=== PATIENT | female | born 1965 | race Caucasian/White ===

== ENCOUNTER 2016-12-11 13:36 | Emergency (ER) | payer BC ==
[~2016-12-11] VITALS: Ht 167.6 cm; Wt 64.5 kg
[~2016-12-11 13:36] MED LIST: ACET-1311 PO; ALBU1AER9 INH; CMBIN INH; IBUP-1277 PO; NORE1TAB53 PO; TRAM-10 PO; Vitamin B 12 PO
[2016-12-11 13:43] VITALS: TEMP 37; Ht 167.6 cm; Wt 64.5 kg
[2016-12-11] MEDS ORDERED: TRAMADOL HCL 50 MG TAB PO STA (13:50)
[2016-12-11] MEDS ORDERED: IBUPROFEN 600 MG TAB PO STA (13:50)
[2016-12-11] MEDS ORDERED: KETOROLAC TROMETHAMINE 60 MG/2 ML VIAL IM STA (13:53)
[2016-12-11] MEDS ORDERED: ONDANSETRON 4MG OD TAB PO ONE (14:00)
[2016-12-11] MEDS ORDERED: ALBU18002 INH (14:02)
[2016-12-11] MEDS ORDERED: IPRA1AER2 INH (14:02)
[2016-12-11] MEDS ORDERED: MULT-506 PO (14:03)
--- NOTE | 2016-12-11 14:29 | DIAGNOSTIC IMAGING REPORT ---
R KNEE 3 VIEWS CLINICAL HISTORY: fall, pain trauma. Pain. COMPARISON: None. DISCUSSION: Nondisplaced cortical fracture anterior inferior margin of the patella. No significant joint effusion. No evidence of dislocation. All remaining osseous structures are unremarkable. There is no evidence for soft tissue swelling. IMPRESSION: Nondisplaced cortical fracture anterior inferior patella. The above report was generated using voice recognition software. It may contain grammatical, syntax or spelling errors. Electronically signed by: Jethro Kaiser M.D. 12/11/2016 2:28 PM Dictated Date/Time: 12/11/2016 2:27 PM
--- NOTE | 2016-12-11 14:35 | EMERGENCY ROOM VISIT NOTE ---
ED Visit Note First contact with patient: 13:47 CHIEF COMPLAINT: knee pain HISTORY OF PRESENT ILLNESS: This 51-year-old patient presents to the emergency department with after sustaining an injury to the right knee when she slipped on water in her kitchen falling to the ground. The patient denies any other injuries besides their knee. The patient complains of swelling without bruising. There is pain throughout the knee. They rate the pain as throbbing and 5/10. The patient states they are barely able to walk on it. Movement makes it worse and nothing makes it better. No numbness or tingling. No previous injuries to this knee. No ankle, foot or hip pain. No other concerns per patient. REVIEW OF SYSTEMS: A 6 system review of systems was completed with positives and pertinent negatives listed in the HPI. ALLERGIES: None MEDICATIONS: Ultram PMH: Bowel obstruction, neck pain SOCIAL HISTORY: No drug use PHYSICAL EXAM: Vital Signs: Reviewed Nurse's notes, vital signs mildly hypertensive. GENERAL: Pleasant female, no acute distress, but appears in pain , well-developed, well-nourished. MENTAL STATUS: Alert, oriented to person place and time, and cooperative. MUSCULOSKELETAL: The right knee is swollen. There is no ecchymosis. There is minimal joint effusion present. The patient is tender diffusely. There is joint line tenderness. The patella not subluxate. Range of motion is intact but painful. Strength of the quads and hamstrings is 5/5, Marcus's and Anterior Drawer tests are negative. There is pain with varus and valgus stressing. The foot and toes are warm and well- perfused. Dorsalis pedis pulse 2+. Sensation to pain and light touch is intact. Capillary refill less than 2 seconds. EMERGENCY DEPARTMENT COURSE: I examined the patient. X-rays of the right knee were reviewed by myself and read by radiology and reveal patella fracture. The patient was placed in a knee immobilizer under my direction and the position was satisfactory. The patient was instructed on the use of crutches. Patient was advised to follow-up with orthopedics in a few days for definitive care for her patella fracture or here in the ER sooner for severe pain, numbness, tingling, worsening signs or symptoms or as needed. The patient was discharged home in good condition. Patient states that they will call Dr. Alaniz's office for follow-up. DIAGNOSIS: #1 right patella fracture, closed, initial encounter #2 fall DISCHARGE INSTRUCTIONS: DO NOT drive, drink alcohol, operate machinery, or perform dangerous activities today. You were given medications in the ER that can affect your ability to safely function or operate a vehicle. Ultram 50mg: Take 1-2 pills every four hours for breakthrough pain. Avoid alcohol, operating machinery or dangerous equipment, working on ladders or roofs , DRIVING, or situations where being under the influence may be dangerous. It is recommended to use an [id number] stool softener such as Colace, 100mg twice daily while taking this medication to avoid constipation. Ibuprofen(Motrin, Advil) may be used for fever or pain. Use 600mg every six hours as needed. Take with food. Avoid using more than 2400mg in a 24 hour period. Do not use 2400mg per day for more than three consecutive days without physician direction. Prolonged inappropriate use can lead to stomach upset or ulcers. This medication can be taken if you need to drive, work, or perform activities which may be dangerous when taking narcotic pain medication. (AND/OR) Acetaminophen(Tylenol) may be used for fever or pain. Use 1000mg every six hours as needed. Avoid using more than 3000mg in a 24 hour period. This medication can be taken if you need to drive, work, or perform activities which may be dangerous when taking narcotic pain medication. Ice compresses for 20 minutes at a time four times daily for 2-3 days. Use the crutches as instructed. Rest and elevate your injury. Wear knee immobilizer when up and about. Do not have it so tight that you cannot feel your foot. Continue current medications. Return to the ER immediately for any numbness, tingling, severe pain, extreme swelling in the extremity or as needed. Call Orthopedics tomorrow to arrange follow up for your injury. Current/Historical Medications Scheduled Multivitamin (Multivitamin), 1 TAB PO DAILY Scheduled PRN Tramadol (Ultram), 50 MG PO Q4H PRN for Pain Allergies Coded Allergies: No Known Allergies (Unverified , 12/11/16) Vital Signs Date Time Temp Pulse Resp B/P (MAP) Pulse Ox O2 Delivery O2 Flow Rate FiO2 12/11/16 13:43 37.0 66 18 140/102 97 Room Air Medications Administered Medications (Trade) Dose Ordered Sig/Hao Route Start Time Stop Time Status Last Admin Dose Admin Tramadol HCl (Ultram Tab) 50 mg ONE STAT PO 12/11/16 13:50 12/11/16 13:52 DC 12/11/16 13:59 50 MG Ketorolac Tromethamine (Toradol Inj) 60 mg NOW STAT IM 12/11/16 13:53 12/11/16 13:54 DC 12/11/16 14:00 60 MG Ondansetron HCl (Zofran Odt) 4 mg ONE ONCE PO 12/11/16 14:00 12/11/16 14:01 DC 12/11/16 13:59 4 MG Departure Information Referrals Joseph Carmona III, M.D. (PCP) Patient Instructions My [facility]
[2016-12-11 14:42] VITALS: BP 143/70; PULSE 73; O2SAT 96
== END 2016-12-11 14:43 | disposition home or self-care (01) ==
LOC: C.EDB 13:37 → C.EDD 14:43
DX: S82.001A Unspecified fracture of right patella, initial encounter for closed fracture (principal); W01.0XXA Fall on same level from slipping, tripping and stumbling without subsequent striking against object, initial encounter; Y92.010 Kitchen of single-family (private) house as the place of occurrence of the external cause

== ENCOUNTER 2017-06-10 07:44 | Emergency (ER) | payer BC ==
[~2017-06-10] VITALS: Ht 167.6 cm; Wt 66.2 kg
[~2017-06-10 07:44] MED LIST changes: -ACET-1311 PO; -ALBU1AER9 INH; -CMBIN INH; -IBUP-1277 PO; +MULT-506 PO; -NORE1TAB53 PO; -Vitamin B 12 PO
[2017-06-10 07:49] VITALS: TEMP 36.8; Ht 167.6 cm; Wt 66.2 kg
--- NOTE | 2017-06-10 08:55 | DIAGNOSTIC IMAGING REPORT ---
L KNEE 3 VIEWS CLINICAL HISTORY: Left knee pain and swelling COMPARISON: None. DISCUSSION: No fractures or dislocations are visualized. There is a suprapatellar joint effusion. There are no erosive or destructive lesions. IMPRESSION: Suprapatellar joint effusion. No fractures identified. Electronically signed by: Paulino Morales M.D. 06/10/2017 8:54 AM Dictated Date/Time: 06/10/2017 8:53 AM
--- NOTE | 2017-06-10 09:33 | DIAGNOSTIC IMAGING REPORT ---
LEFT LOWER EXTREMITY VENOUS DOPPLER CLINICAL HISTORY: LEFT, CALF PAIN COMPARISON STUDY: No previous studies for comparison. TECHNIQUE: Sonography of the deep venous system of the left lower extremity was performed. Compression and augmentation were evaluated. FINDINGS: The common femoral, superficial femoral and popliteal veins were compressible. Augmentation was normal. Flow was shown within the deep calf vessels. Note is made of a complex 3.6 x 1.9 x 1.7 cm hypoechoic focus with the left popliteal fossa. This contains no color flow. IMPRESSION: 1. No evidence of deep venous thrombus within the left lower extremity. 2. 3.6 x 1.7 x 1.7 cm hypoechoic focus within the left popliteal fossa. Statistically, this reflects a complex popliteal cyst. However, a follow-up ultrasound in 3 months is recommended to exclude the less likely possibility of a mass. Electronically signed by: Eduardo Obando M.D. 06/10/2017 9:31 AM Dictated Date/Time: 06/10/2017 9:27 AM
--- NOTE | 2017-06-10 09:37 | EMERGENCY ROOM VISIT NOTE ---
ED Visit Note First contact with patient: 07:54 CHIEF COMPLAINT: Left knee and leg pain 2 weeks HISTORY OF PRESENT ILLNESS: Patient is a healthy 51-year-old female who presents emergency department for evaluation of left knee and calf pain. She states her symptoms started a couple of weeks ago, with a throbbing, shooting pain around the knee. At night, the pain is achy and radiates through the entire leg. She has tried ibuprofen, ice and wearing a knee brace on the knee. A couple of days ago, she began to notice shooting pain into the medial left calf. She did not notice any significant swelling or redness. The pain is worse when she sits for prolonged periods of time. She denies any numbness or tingling. No chest pain or shortness of breath. She does note that she was in a knee brace for a right patellar fracture in the fall, and travels frequently by car and plane. She just returned from [place] yesterday. She denies any prior history of DVT or PE. She does not smoke and is not presently on any oral contraceptives. She spoke with a friend who is a physician who recommended that she come to the emergency department to have the leg evaluated for a possible DVT. REVIEW OF SYSTEMS: Review of systems as per HPI. All other systems reviewed were negative. 10 systems reviewed. PMH: Electronic medical records are reviewed and summarized as above/below. See Problem List. SOCIAL HISTORY: Patient lives at home with her spouse. Employed. Non-smoker. PHYSICAL EXAM: Vital Signs: Reviewed Nurse's notes. Patient is a pleasant, well -appearing 51-year-old female who is awake and alert and in no acute distress. MUSCULOSKELETAL: Examination of the left lower extremity does not reveal any obvious deformity, no erythema, rashes or edema noted. Examination of the knee notes no significant swelling or joint effusion palpable. There is some peripatellar tenderness and crepitus. Range of motion is full. No gross ligamentous instability is appreciated. She does have some fullness in the popliteal space which is slightly tender. Thigh is nontender, she has some soreness in the medial left calf, but no palpable cords. Lower extremity strength is equal and symmetrical bilaterally. Sensation to light touch is intact. Distal pulses are easily palpable. EMERGENCY DEPARTMENT COURSE: The patient was seen and evaluated as above. She has had some left knee pain for a couple of weeks, now has had some left calf pain in the setting of recent travel. X-rays of the left knee were obtained, mild suprapatellar joint effusion was noted. Ultrasound of the left lower extremity was performed to evaluate for DVT, and was negative. A 3 x 2 x 2 cm hypoechoic focus within the left popliteal fossa is suspicious for a popliteal cyst, follow-up ultrasound was advised. Results of her diagnostic imaging studies were reviewed with her. She was encouraged to follow-up with orthopedics for further care and evaluation of her knee symptoms. Differential diagnoses entertained included sprain, synovitis, tendinitis, ligamentous injury, meniscal tear, DVT, phlebitis, muscle strain, among others. Medication reconciliation: I attest that I have personally reviewed the patient' s current medication list. Blood pressure screening : Patient was found to have normal blood pressure on screening and does not require follow-up. L KNEE 3 VIEWS CLINICAL HISTORY: Left knee pain and swelling COMPARISON: None. DISCUSSION: No fractures or dislocations are visualized. There is a suprapatellar joint effusion. There are no erosive or destructive lesions. IMPRESSION: Suprapatellar joint effusion. No fractures identified. LEFT LOWER EXTREMITY VENOUS DOPPLER CLINICAL HISTORY: LEFT, CALF PAIN COMPARISON STUDY: No previous studies for comparison. TECHNIQUE: Sonography of the deep venous system of the left lower extremity was performed. Compression and augmentation were evaluated. FINDINGS: The common femoral, superficial femoral and popliteal veins were compressible. Augmentation was normal. Flow was shown within the deep calf vessels. Note is made of a complex 3.6 x 1.9 x 1.7 cm hypoechoic focus with the left popliteal fossa. This contains no color flow. IMPRESSION: 1. No evidence of deep venous thrombus within the left lower extremity. 2. 3.6 x 1.7 x 1.7 cm hypoechoic focus within the left popliteal fossa. Statistically, this reflects a complex popliteal cyst. However, a follow-up ultrasound in 3 months is recommended to exclude the less likely possibility of a mass. Problem List Medical Problems: (1) Asthma Status: Chronic (2) Migraines Status: Chronic (3) Right patella fracture Status: Resolved (4) SBO (small bowel obstruction) Status: Resolved (5) SBO (small bowel obstruction) Status: Resolved Surgical Problems: (1) History of intestinal surgery Status: Resolved (2) History of sinus surgery Status: Resolved Current/Historical Medications Scheduled PRN Tramadol (Ultram), 50 MG PO Q4H PRN for Pain Allergies Coded Allergies: No Known Allergies (Unverified , 06/10/17) Vital Signs Date Time Temp Pulse Resp B/P (MAP) Pulse Ox O2 Delivery O2 Flow Rate FiO2 06/10/17 09:57 68 20 141/80 100 06/10/17 09:35 69 20 120/90 97 06/10/17 07:49 36.8 80 20 119/81 98 Room Air Departure Information Impression Primary Impression: Synovial cyst of left popliteal space Additional Impression: Pain of left calf Referrals Joseph Carmona III, M.D. (PCP) Patient Instructions [facility] Additional Instructions Ibuprofen(Motrin, Advil): may be used for fever or pain. Use 600mg every six hours as needed. Take with food. Avoid using more than 2400mg in a 24 hour period. Do not use 2400mg per day for more than three consecutive days without physician direction. Prolonged inappropriate use can lead to stomach upset or ulcers. This is available over the counter and typically comes in 200mg tablets. (AND/OR) Acetaminophen(Tylenol): may be used for fever or pain. Use 1000mg every eight hours as needed. Avoid using more than 3000mg in a 24 hour period. This is available over the counter. Activity as tolerated. Continue current medications. Return to the ER immediately for any numbness, tingling, severe pain, extreme swelling in the extremity or as needed. Follow up with [facility] for further care and evaluation. Problem Qualifiers
[2017-06-10 09:57] VITALS: BP 141/80; PULSE 68; O2SAT 100
== END 2017-06-10 09:58 | disposition home or self-care (01) ==
LOC: C.EDB 07:46 → C.EDA 09:58
DX: M79.662 Pain in left lower leg (principal); M25.462 Effusion, left knee; M71.22 Synovial cyst of popliteal space [Baker], left knee; Z87.828 Personal history of other (healed) physical injury and trauma

== ENCOUNTER → 2017-06-14 | Outpatient (CLI) | payer BC ==
[~2017-06-14] MED LIST changes: -MULT-506 PO
--- NOTE | 2017-06-14 16:47 | DIAGNOSTIC IMAGING REPORT ---
MRI OF THE LEFT KNEE CLINICAL HISTORY: Left knee pain. COMPARISON STUDY: Radiographs of left knee dated 06/10/2017. TECHNIQUE: MRI of the left knee was performed utilizing proton density, T1, and T2-weighted sequences in the axial, sagittal, coronal planes. IV contrast was not administered for this examination. FINDINGS: Menisci: There is an oblique tear involving the posterior horn of the medial meniscus. This is best seen on sagittal image #7. The lateral meniscus is intact. Ligaments: The anterior and posterior cruciate ligaments are intact. The medial and lateral collateral ligaments are within normal limits. Extensor mechanism: The extensor mechanism is intact. Hoffa's fat pad is normal in appearance. Articular cartilage and bone: There is mild chondromalacia patella, with greater than 50% thinning of the articular cartilage along the medial patellar facet. There is minimal reactive marrow edema. No full-thickness cartilage loss is identified. Fissuring is also seen in the articular cartilage along the medial femoral trochlea. Only mild thinning is seen involving the articular cartilage along the weightbearing surface in the medial compartment. The articular cartilage of the lateral compartment appears preserved. There is no MRI evidence of fracture. Joint effusion: There is a moderate joint effusion. Soft tissues: There is a popliteal cyst which measures up to 3.8 cm. The musculature surrounding the knee joint is normal in bulk and signal intensity. IMPRESSION: 1. There is an oblique tear involving the posterior horn of the medial meniscus. 2. The lateral meniscus, the cruciate ligaments, and the collateral ligaments appear intact. 3. Moderate joint effusion and popliteal cyst. 4. Mild chondromalacia patella. Electronically signed by: Chad Cruz M.D. 06/14/2017 4:46 PM Dictated Date/Time: 06/14/2017 4:41 PM
== END | disposition home or self-care (01) ==
LOC: C.MRIBC 15:05
PROVIDERS: ATTEND Orthopaedic Surgery
DX: S83.242A Other tear of medial meniscus, current injury, left knee, initial encounter (principal); X58.XXXA Exposure to other specified factors, initial encounter; M71.22 Synovial cyst of popliteal space [Baker], left knee; M22.42 Chondromalacia patellae, left knee